=== PATIENT | male | born 1945 | race African-American/Black ===

== ENCOUNTER 2022-04-22 15:07 | Inpatient (IN) ==
[2022-04-22 17:12] VITALS: BMI 29.1
[2022-04-22] MEDS ORDERED: DILAUDID INJ IVP PRN (17:51)
[2022-04-22] MEDS ORDERED: NovoLIN R (or HumuLIN R) SC PRN (17:51)
[2022-04-22] MEDS: LR 1,000 ML IV 1,000 ML IV SCH (18:06)
[2022-04-22 18:28] LABS: BASOPHILS # (AUTO) 0.2 X10^3/uL (0.0-0.1); BASOPHILS % (AUTO) 2.4 % (0.2-1.0); EOSINOPHILS # (AUTO) 0.5 x10^3/uL (0.0-0.2); EOSINOPHILS % (AUTO) 6.9 % (0.9-2.9); HEMATOCRIT 36.1 % (42.0-54.0); HEMOGLOBIN 11.8 g/dL (13.5-18.0); LYMPHOCYTES # (AUTO) 2.3 X10^3/uL (1.3-2.9); MEAN CORPUSCULAR HEMOGLOBIN 29.6 pg (27.0-34.0); MEAN CORPUSCULAR HGB CONC 32.7 g/dL (33.0-35.0); MEAN CORPUSCULAR VOLUME 90.8 fL (80.0-100.0); MEAN PLATELET VOLUME 8.2 fL (7.4-11.0); MONOCYTES # (AUTO) 0.6 x10^3/uL (0.3-0.8); MONOCYTES % (AUTO) 9.3 % (0.0-13.0); NEUTROPHILS # (AUTO) 3.4 x10^3/uL (2.2-4.8); NEUTROPHILS % (AUTO) 48.4 % (42.0-75.0); RED BLOOD COUNT 3.97 X10^6/uL (4.7-6.0); WHITE BLOOD COUNT 6.9 X10^3/uL (3.6-10.0)
[2022-04-22 18:30] LABS: BLOOD UREA NITROGEN 12 mg/dL (7-18); CALCIUM 8.9 mg/dL (8.5-10.1); CARBON DIOXIDE 32.3 mmol/L (21-32); CHLORIDE 102 mmol/L (98-107); CREATININE 0.93 mg/dL (0.70-1.30); SODIUM 140 mmol/L (136-145); eGFR NON BLACK RACES > 60 (>60)
--- NOTE | 2022-04-22 19:55 | RAD ---
CHEST, 1 VIEWHISTORY: Ischemix lower extremitiesStudy: Single view of the chest.Comparison:NoneFindings:The cardiomediastinal silhouette is normal.No focal consolidations, pleural effusions or pneumothorax. Osseous structures demonstrate no acute abnormality.IMPRESSION:1. No acute cardiopulmonary process.Electronically signed by: RITCHIE SINCLAIR (Apr 22, 2022 19:54:10)
--- NOTE | 2022-04-22 20:00 | CT ---
HISTORYIschemic right lower extremitiesSTUDYCTA AORTA WITH RUNOFFCOMPARISONNone available.TECHNIQUEAxial CT images of the abdomen, pelvis and lower extremities were obtained prior to and after the administration of 150 Omnipaque 350 IV contrast during the arterial phase. Images were reformatted with a 3D angiographic technique for further evaluation.Radiation dose: 1097.82 mGy-cm total DLPFINDINGSAorta: Atherosclerotic changes with no aneurysm. No clinically significant stenosis or occlusion.Mesenteric arteries/Celiac trunk: Atherosclerotic changes. No clinically significant stenosis, occlusion or aneurysm.Renal arteries: Atherosclerotic changes. No clinically significant stenosis, occlusion or aneurysm.Right iliac arteries: Atherosclerotic changes. No clinically significant stenosis, occlusion or aneurysm.Left iliac arteries: Atherosclerotic changes. No clinically significant stenosis, occlusion or aneurysm.Right femoral arteries/popliteal artery: Atherosclerotic changes. No clinically significant stenosis, occlusion or aneurysm.Left femoral arteries/popliteal artery: Atherosclerotic changes. No clinically significant stenosis, occlusion or aneurysm.Right infrapopliteal arteries: Moderate atherosclerotic changes. Contrast is visualized throughout the peroneal artery, however contrast is only visualize in the proximal-mid aspect of the anterior and posterior tibial arteries.Left infrapopliteal arteries: Moderate atherosclerotic changes. Contrast is visualized throughout the peroneal artery, however contrast is only visualize in the proximal-mid aspect of the anterior and posterior tibial arteries.Lung bases are clear.Calcified subcarinal and hilar lymph nodes; consistent with the sequela of a previous granulomatous infection.Stomach and proximal small bowel appear normal.Solid visceral organs of the upper abdomen are unremarkable.Tiny calcified gallstones or sludge in the dependent portion of the gallbladder with no imaging findings of acute cholecystitis.No biliary dilatation.Bilateral renal cysts.Otherwise, unremarkable appearance of the kidneys and ureters.No urinary calculus identified.Urinary bladder is unremarkable.Colonic diverticulosis without diverticulitis.Otherwise, unremarkable appearance of the small and large bowel.No evidence of acute appendicitis.Nonspecific enlargement of the prostate gland.No pneumoperitoneum.No free intra-abdominal fluid.No adenopathy.Small fat containing umbilical hernia without inflammatory changes.Cutaneous ulcer in the anterior aspect of the distal right leg with chronic appearing lucency in the adjacent tibia.IMPRESSION1. No acute intra-abdominal abnormality identified.2. Moderate atherosclerotic changes in the trifurcation vessels in the distal lower extremity bilaterally. Contrast is visualized throughout the peroneal artery, however contrast is only visualize in the proximal-mid aspect of the anterior and posterior tibial arteries bilateral.3. Cutaneous ulcer in the anterior aspect of the distal right leg with chronic appearing lucency in the adjacent tibia. Finding is concerning for cellulitis/chronic osteomyelitis.4. Tiny calcified gallstones or sludge in the dependent portion of the gallbladder with no imaging findings of acute cholecystitis.5. Colonic diverticulosis without diverticulitis.6. Nonspecific enlargement of the prostate gland.Electronically signed by: Uri Payne (Apr 22, 2022 20:00:04)
[2022-04-22] MEDS: RESTORIL CAP 15 MG PO PRN (23:53)
[2022-04-22] MEDS ORDERED: RESTORIL CAP 15 MG PO ONE (23:57)
[2022-04-23] MEDS: LR 1,000 ML IV 1,000 ML IV SCH ×2 (09:18→22:14)
[2022-04-23] MEDS: ZESTRIL TAB 10 MG PO SCH (09:18)
[2022-04-23] MEDS ORDERED: NS 1,000 ML IV 1,000 ML ONE (12:19)
[2022-04-23] MEDS ORDERED: NS 100 ML IV 100 ML ONE (12:23)
[2022-04-23] MEDS ORDERED: ANCEF VIAL 1 GRAM ONE (12:24)
[2022-04-23] MEDS ORDERED: HEPARIN SODIUM IN D5W 75,000 UNITS/1,500 ML BAG ONE (13:04)
[2022-04-23] MEDS ORDERED: MARCAINE 0.5% ONE (13:04)
[2022-04-23] MEDS ORDERED: XYLOCAINE 2 % (PLAIN) ONE (14:04)
[2022-04-23] MEDS ORDERED: DIPRIVAN VIAL 40 ML ONE (14:04)
[2022-04-23] MEDS ORDERED: KETAMINE 50 MG/5 ML-NACL SYRNG ONE (14:04)
[2022-04-23] MEDS ORDERED: MAGNESIUM SULFATE 50% INJ VIAL ONE (14:05)
[2022-04-23] MEDS ORDERED: PRECEDEX INJ VIAL IVP ONE (14:05)
[2022-04-23] MEDS ORDERED: FENTANYL VIAL INJ 100 mcg ONE (14:17)
[2022-04-23] MEDS ORDERED: HEPARIN SODIUM INJ 5000 UNITS ONE ×2 (14:20→15:28)
[2022-04-23] MEDS ORDERED: ROBINUL ONE (14:22)
[2022-04-23] MEDS ORDERED: NEO-SYNEPHRINE INJ ONE (14:24)
[2022-04-23] MEDS ORDERED: NS 500 ML IV 500 ML IV ONE (15:21)
[2022-04-23] MEDS ORDERED: DIPRIVAN VIAL 20 ML ONE (15:30)
[2022-04-23] MEDS ORDERED: FLUZONE II4 or AFLURIA II4 IM ONE (16:00)
[2022-04-23] MEDS ORDERED: PROTAMINE SULFATE 50 MG VIAL ONE (16:02)
[2022-04-23] MEDS ORDERED: PERCOCET TAB 5/325 MG PO PRN (16:16)
--- NOTE | 2022-04-23 17:00 | OR.IMMED ---
IMMEDIATE POST-OP NOTE Immediate Post-Op Note Pre-Op Diagnosis: Critically ischemic right foot with non healing wound Post-Op Diagnosis: same Procedure: Diagnostic aortogram, arteriogram right leg, atherectomy and balloon angioplasty left posterior tibial artery, angioplasty rigth anterior tibial artery, angioplasty right peroneal artery. Description of Procedure: see operative summary Surgeon/Insulation Worker: Yancy Findings: complete occlusion right anterior tibial and posterior tibial arteries, Severe stenosis right peroneal artery Estimated Blood Loss: 75 cc Drains: NONE Complications: none Progress Notes: return to floor, continue hydration, 1800 calorie diet, check labs in AM and if ready will discharge home then Final Diagnosis: as above
[2022-04-23] MEDS ORDERED: TYLENOL 325 MG TAB PO PRN (22:50)
[2022-04-23] MEDS ORDERED: TYLENOL 325 MG TAB PO ONE (22:52)
[2022-04-23] MEDS: RESTORIL CAP 15 MG PO PRN (22:57)
[2022-04-24] MEDS ORDERED: STERILE WATER IRRIGATION IR ONE ×2 (03:31→03:33)
[2022-04-24 04:20] LABS: BILIRUBIN,URINE NEGATIVE (NEGATIVE); BLOOD/HEMOGLOBIN,URINE 5+ (NEGATIVE); GLUCOSE, URINE 1+ (NEGATIVE); KETONES,URINE NEGATIVE (NEGATIVE); LEUKOCYTE ESTERASE ,URINE 1+ (NEGATIVE); NITRITES,URINE NEGATIVE (NEGATIVE); PH,URINE 6.5 (5.0 - 8.0); PROTEIN,URINE 4+ (NEGATIVE); UROBILINOGEN,URINE NORMAL (NORMAL)
[2022-04-24 04:28] LABS: COLOR,URINE RED (YELLOW)
[2022-04-24 04:30] LABS: APPEARANCE,URINE TURBID (CLEAR)
[2022-04-24 04:33] LABS: RBC,URINE TNTC /HPF (0-3); SQUAMOUS EPITHELIAL CELL,UR RARE /HPF (NEGATIVE)
[2022-04-24 04:34] LABS: BACTERIA,URINE TRACE /HPF (NEGATIVE)
[2022-04-24] MEDS: LR 1,000 ML IV 1,000 ML IV SCH ×2 (04:37→10:57)
[2022-04-24 05:47] LABS: BASOPHILS % (AUTO) 0.3 % (0.2-1.0); EOSINOPHILS # (AUTO) 0.2 x10^3/uL (0.0-0.2); EOSINOPHILS % (AUTO) 2.5 % (0.9-2.9); HEMATOCRIT 34.6 % (42.0-54.0); HEMOGLOBIN 11.6 g/dL (13.5-18.0); LYMPHOCYTES # (AUTO) 1.4 X10^3/uL (1.3-2.9); LYMPHOCYTES % (AUTO) 16.7 % (21.0-51.0); MEAN CORPUSCULAR HEMOGLOBIN 30.2 pg (27.0-34.0); MEAN CORPUSCULAR HGB CONC 33.4 g/dL (33.0-35.0); MEAN CORPUSCULAR VOLUME 90.5 fL (80.0-100.0); MEAN PLATELET VOLUME 8.1 fL (7.4-11.0); MONOCYTES # (AUTO) 0.7 x10^3/uL (0.3-0.8); MONOCYTES % (AUTO) 8.7 % (0.0-13.0); NEUTROPHILS # (AUTO) 5.9 x10^3/uL (2.2-4.8); NEUTROPHILS % (AUTO) 71.8 % (42.0-75.0); RED BLOOD COUNT 3.83 X10^6/uL (4.7-6.0); RED CELL DISTRIBUTION WIDTH 13.1 % (11.6-16.5); WHITE BLOOD COUNT 8.3 X10^3/uL (3.6-10.0)
[2022-04-24 05:57] LABS: BLOOD UREA NITROGEN 13 mg/dL (7-18); CALCIUM 8.4 mg/dL (8.5-10.1); CHLORIDE 102 mmol/L (98-107); COR NA(FOR HYPERGLY) 139 mmol/L (136-145); CREATININE 1.04 mg/dL (0.70-1.30); SODIUM 138 mmol/L (136-145); eGFR NON BLACK RACES > 60 (>60)
[2022-04-24] MEDS ORDERED: FLUZONE II4 or AFLURIA II4 IM ONE (08:00)
[2022-04-24] MEDS: ZESTRIL TAB 10 MG PO SCH (08:19)
[2022-04-24 08:27] LABS: ALANINE AMINOTRANSFERASE 19 Units/L (12-78); ALKALINE PHOSPHATASE 77 Units/L (46-116); ASPARTATE AMINO TRANSFERASE 23 Units/L (15-37); BLOOD UREA NITROGEN 14 mg/dL (7-18); CALCIUM 8.4 mg/dL (8.5-10.1); CARBON DIOXIDE 30.5 mmol/L (21-32); CHLORIDE 101 mmol/L (98-107); COR CA(FOR HYPOALB) 9.2 mg/dL (8.5-10.1); COR NA(FOR HYPERGLY) 139 mmol/L (136-145); SODIUM 138 mmol/L (136-145); TOTAL PROTEIN 6.9 g/dL (6.4-8.2); eGFR NON BLACK RACES > 60 (>60)
--- NOTE | 2022-04-24 11:35 | W.DIS.FURT ---
Summary of Discharge Discharge Summary of Date Date of Exam: 04/24/22 Admission Date Date of Admission: 04/22/22 Admission Diagnosis Hospital Course: 76 year old mail referred to my office on April 22, 2022. Patient with history in the past of fracture of the right ankle requiring open reduction and internal fixation with one single screw in place. Patient with draining wound at the anterior right ankle . Patient is to have removal of the foreign body in the near future with debridement of the ankle wound .Arterial Doppler showed only monophasic flow below the knee of the right leg. Concern was that this would not heal due to the arterial flow problem. He was admitted that day and CT angiogram showed complete occlusion of all trifurcation vessels below the knee. He was taken to the operating Suite the next day April 23 ,where he had an aortogram and arteriogram of the right lower extremity. He had complete total occlusion of both the anterior tibial and posterior tibial arteries with severe stenosis of the proximal right peroneal artery which was the only thing that provided flow to the right foot and ankle .He underwent balloon angioplasty of the right anterior tibial artery which ended at the ankle near the fracture and did not reconstruct the dorsalis pedis. He underwent atherectomy and balloon angioplasty of the entire right posterior tibial artery all the way around the ankle of the medial malleolus as well as angioplasty of the right proximal severly diseased peroneal . Postoperatively he has done well. He had a Gomez catheter placed during the case and last night had some difficulty passing urine with evidence of clots . The Gomez catheter was replaced and irrigation of the bladder done and it is much clearer now. He will be on his usual medications plus aspirin 81 mg daily as well as Xarelto to a 2.5 mg BID. Follow up with me 1 week . I have contacted and told him it was okay to go ahead with the planned surgery of the right ankle to remove the screw and debride the wound as necessary . Gomez catheter to be removed prior to discharge. I have given him my cell phone number should he have any difficulty urinating. Encourage ambulation . Vital Signs: Vital Signs (72 hours) 04/22/22 16:42 04/22/22 16:22 04/22/22 19:00 Temperature 98.2 F Pulse Rate Pulse Rate [Right Radial] 69 Respiratory Rate 18 Blood Pressure Blood Pressure [Right Arm] 168/90 O2 Sat by Pulse Oximetry 97 Oxygen Delivery Method Room Air Room Air Room Air 04/22/22 20:00 04/22/22 23:29 04/23/22 04:00 Temperature 98 F 97.8 F 98.3 F Pulse Rate Pulse Rate [Right Radial] 80 85 71 Respiratory Rate 18 18 20 Blood Pressure Blood Pressure [Right Arm] 175/83 161/72 162/82 O2 Sat by Pulse Oximetry 94 L 95 94 L Oxygen Delivery Method Room Air Room Air Room Air 04/23/22 07:36 04/23/22 07:55 04/23/22 09:15 Temperature 97.3 F L Pulse Rate Pulse Rate [Right Radial] 71 Respiratory Rate 18 Blood Pressure Blood Pressure [Right Arm] 181/96 158/92 O2 Sat by Pulse Oximetry 94 L Oxygen Delivery Method Room Air Room Air 04/23/22 11:58 04/23/22 12:24 04/23/22 16:20 Temperature 98.2 F 97.7 F Pulse Rate 74 Pulse Rate [Right Radial] 70 58 L Respiratory Rate 18 20 16 Blood Pressure 169/86 Blood Pressure [Right Arm] 177/86 84/54 O2 Sat by Pulse Oximetry 97 96 98 Oxygen Delivery Method Room Air Room Air 04/23/22 16:35 04/23/22 16:50 04/23/22 17:05 Temperature 97.7 F 97.0 F L 97.0 F L Pulse Rate Pulse Rate [Right Radial] 55 L 52 L 64 Respiratory Rate 16 16 16 Blood Pressure Blood Pressure [Right Arm] 88/53 90/52 100/61 O2 Sat by Pulse Oximetry 100 100 99 Oxygen Delivery Method 04/23/22 17:20 04/23/22 18:20 04/23/22 19:00 Temperature 97.1 F L 97.3 F L Pulse Rate Pulse Rate [Right Radial] 60 61 Respiratory Rate 16 16 Blood Pressure Blood Pressure [Right Arm] 99/61 115/71 O2 Sat by Pulse Oximetry 100 100 Oxygen Delivery Method Room Air 04/23/22 22:58 04/23/22 19:20 04/23/22 20:20 Temperature 98.1 F 97.7 F Pulse Rate Pulse Rate [Right Radial] 56 L 63 Respiratory Rate 20 18 18 Blood Pressure Blood Pressure [Right Arm] 154/79 167/79 O2 Sat by Pulse Oximetry 100 95 Oxygen Delivery Method Room Air Room Air 04/23/22 23:03 04/23/22 23:46 04/23/22 23:58 Temperature 98 F 98.1 F Pulse Rate Pulse Rate [Right Radial] 80 84 Respiratory Rate 18 20 20 Blood Pressure Blood Pressure [Right Arm] 159/73 155/71 O2 Sat by Pulse Oximetry 95 94 L Oxygen Delivery Method Room Air Room Air 04/24/22 04:00 04/24/22 03:31 04/24/22 04:01 Temperature 97.8 F Pulse Rate Pulse Rate [Right Radial] 79 Respiratory Rate 18 20 20 Blood Pressure Blood Pressure [Right Arm] 179/84 O2 Sat by Pulse Oximetry 94 L Oxygen Delivery Method Room Air 04/24/22 08:31 Temperature Pulse Rate Pulse Rate [Right Radial] Respiratory Rate Blood Pressure Blood Pressure [Right Arm] O2 Sat by Pulse Oximetry Oxygen Delivery Method Room Air Labs: Laboratory Last Values WBC 8.3 X10^3/uL (3.6-10.0) 04/24/22 05:32 RBC 3.83 X10^6/uL (4.7-6.0) L 04/24/22 05:32 Hgb 11.6 g/dL (13.5-18.0) L 04/24/22 05:32 Hct 34.6 % (42.0-54.0) L 04/24/22 05:32 MCV 90.5 fL (80.0-100.0) 04/24/22 05:32 MCH 30.2 pg (27.0-34.0) 04/24/22 05:32 MCHC 33.4 g/dL (33.0-35.0) 04/24/22 05:32 RDW 13.1 % (11.6-16.5) 04/24/22 05:32 Plt Count 214 X10^3/uL (150.0-450.0) 04/24/22 05:32 MPV 8.1 fL (7.4-11.0) 04/24/22 05:32 Neut % (Auto) 71.8 % (42.0-75.0) 04/24/22 05:32 Lymph % (Auto) 16.7 % (21.0-51.0) L 04/24/22 05:32 [place] % (Auto) 8.7 % (0.0-13.0) 04/24/22 05:32 Eos % (Auto) 2.5 % (0.9-2.9) 04/24/22 05:32 Baso % (Auto) 0.3 % (0.2-1.0) 04/24/22 05:32 Neut # (Auto) 5.9 x10^3/uL (2.2-4.8) H 04/24/22 05:32 Lymph # (Auto) 1.4 X10^3/uL (1.3-2.9) 04/24/22 05:32 [place] # (Auto) 0.7 x10^3/uL (0.3-0.8) 04/24/22 05:32 Eos # (Auto) 0.2 x10^3/uL (0.0-0.2) 04/24/22 05:32 Baso # (Auto) 0.0 X10^3/uL (0.0-0.1) 04/24/22 05:32 Absolute Nucleated RBC 0.0 /100WBC 04/24/22 05:32 Sodium 138 mmol/L (136-145) 04/24/22 05:32 Sodium 138 mmol/L (136-145) 04/24/22 05:32 Corrected Sodium 139 mmol/L (136-145) 04/24/22 05:32 Corrected Sodium 139 mmol/L (136-145) 04/24/22 05:32 Potassium 4.0 mmol/L (3.5-5.1) 04/24/22 05:32 Potassium 4.0 mmol/L (3.5-5.1) 04/24/22 05:32 Chloride 101 mmol/L (98-107) 04/24/22 05:32 Chloride 102 mmol/L (98-107) 04/24/22 05:32 Carbon Dioxide 30.0 mmol/L (21-32) 04/24/22 05:32 Carbon Dioxide 30.5 mmol/L (21-32) 04/24/22 05:32 BUN 13 mg/dL (7-18) 04/24/22 05:32 BUN 14 mg/dL (7-18) 04/24/22 05:32 Creatinine 1.04 mg/dL (0.70-1.30) 04/24/22 05:32 Creatinine 1.10 mg/dL (0.70-1.30) 04/24/22 05:32 Est GFR (MDRD) Af Amer > 60 (>60) 04/24/22 05:32 Est GFR (MDRD) Af Amer > 60 (>60) 04/24/22 05:32 Est GFR (MDRD) Non-Af > 60 (>60) 04/24/22 05:32 Est GFR (MDRD) Non-Af > 60 (>60) 04/24/22 05:32 Glucose 130 mg/dL (65-99) H 04/24/22 05:32 Glucose 131 mg/dL (65-99) H 04/24/22 05:32 POC Glucose (mg/dL) 156 mg/dL (65-99) H 04/24/22 10:57 Calcium 8.4 mg/dL (8.5-10.1) L 04/24/22 05:32 Calcium 8.4 mg/dL (8.5-10.1) L 04/24/22 05:32 Corrected Calcium 9.2 mg/dL (8.5-10.1) 04/24/22 05:32 Total Bilirubin 0.60 mg/dL (0.2-1.0) 04/24/22 05:32 AST 23 Units/L (15-37) 04/24/22 05:32 ALT 19 Units/L (12-78) 04/24/22 05:32 Alkaline Phosphatase 77 Units/L (46-116) 04/24/22 05:32 Total Protein 6.9 g/dL (6.4-8.2) 04/24/22 05:32 Albumin 3.0 g/dL (3.4-5.0) L 04/24/22 05:32 Globulin 3.9 g/dL (2.5-4.5) 04/24/22 05:32 Albumin/Globulin Ratio 0.8 Ratio (1.1-2.1) L 04/24/22 05:32 Specimen Type Catherized urine 04/24/22 04:00 Urine Color Red (YELLOW) 04/24/22 04:00 Urine Appearance Turbid (CLEAR) 04/24/22 04:00 Urine pH 6.5 (5.0 - 8.0) 04/24/22 04:00 Ur Specific [place] 1.010 (1.000-1.030) 04/24/22 04:00 Urine Protein 4+ (NEGATIVE) 04/24/22 04:00 Urine Glucose (UA) 1+ (NEGATIVE) 04/24/22 04:00 Urine Ketones Negative (NEGATIVE) 04/24/22 04:00 Urine Blood 5+ (NEGATIVE) 04/24/22 04:00 Urine Nitrite Negative (NEGATIVE) 04/24/22 04:00 Urine Bilirubin Negative (NEGATIVE) 04/24/22 04:00 Urine Urobilinogen Normal (NORMAL) 04/24/22 04:00 Ur Leukocyte Esterase 1+ (NEGATIVE) 04/24/22 04:00 Urine RBC Tntc /HPF (0-3) A 04/24/22 04:00 Urine WBC 0-2 /HPF (0-5) 04/24/22 04:00 Ur Squamous Epith Cells Rare /HPF (NEGATIVE) 04/24/22 04:00 Urine Bacteria Trace /HPF (NEGATIVE) 04/24/22 04:00 Urine Mucus Rare /HPF (NEGATIVE) 04/24/22 04:00 Ur Culture Indicated? No/not indicated 04/24/22 04:00 Reason For Visit: ISCHEMIC RIGHT LEG Discharge Date Discharge Date: 04/24/22 Discharge Diagnosis All Active Problems (Updated 04/24/22 @ 11:34 by Dejan Haines) Critical limb ischemia of right lower extremity (Acute) Plan of Treatment: Continue with present treatment and follow up plan. Pt is to keep follow up appointment as instructed and take medications as ordered. Discharge Medications Discharge Medications: No Known Drug Allergies [NKDA] Allergy (Verified 04/22/22 17:17) CONTINUE taking the following medications metformin 1,000 mg tablet 1,000 mg PO BID 04/23/22 [History] New Prescriptions aspirin 81 mg tablet,delayed release 81 mg PO QDAY #90 tabs 04/24/22 [Rx] rivaroxaban 2.5 mg tablet (Xarelto) 2.5 mg PO BID #180 tabs 04/24/22 [Rx] Discharge Disposition Assessment: see hospital course Discharge Plan Discharge Plan Hospital Course: 76 year old mail referred to my office on April 22, 2022. Patient with history in the past of fracture of the right ankle requiring open reduction and internal fixation with one single screw in place. Patient with draining wound at the anterior right ankle . Patient is to have removal of the foreign body in the near future with debridement of the ankle wound .Arterial Doppler showed only monophasic flow below the knee of the right leg. Concern was that this would not heal due to the arterial flow problem. He was admitted that day and CT angiogram showed complete occlusion of all trifurcation vessels below the knee. He was taken to the operating Suite the next day April 23 ,where he had an aortogram and arteriogram of the right lower extremity. He had complete total occlusion of both the anterior tibial and posterior tibial arteries with severe stenosis of the proximal right peroneal artery which was the only thing that provided flow to the right foot and ankle .He underwent balloon angioplasty of the right anterior tibial artery which ended at the ankle near the fracture and did not reconstruct the dorsalis pedis. He underwent atherectomy and balloon angioplasty of the entire right posterior tibial artery all the way around the ankle of the medial malleolus as well as angioplasty of the right proximal severly diseased peroneal . Postoperatively he has done well. He had a Gomez catheter placed during the case and last night had some difficulty passing urine with evidence of clots . The Gomez catheter was replaced and irrigation of the bladder done and it is much clearer now. He will be on his usual medications plus aspirin 81 mg daily as well as Xarelto to a 2.5 mg BID. Follow up with me 1 week . I have contacted and told him it was okay to go ahead with the planned surgery of the right ankle to remove the screw and debride the wound as necessary . Gomez catheter to be removed prior to discharge. I have given him my cell phone number should he have any difficulty urinating. Encourage ambulation . Patient Disposition: 01 HOME, SELF-CARE Condition: Stable Health Concerns: Post Hospitalization: new medications and changes needed to prevent readmission or further decline. Pt educated and given instructions on all concerns. Care Plan Goals: See hospital summary Plan of Treatment: Continue with present treatment and follow up plan. Pt is to keep follow up appointment as instructed and take medications as ordered. Assessment: see hospital course Prescriptions: New aspirin 81 mg tablet,delayed release (DR/EC) 81 mg PO QDAY Qty: 90 0RF Xarelto 2.5 mg tablet 2.5 mg PO BID Qty: 180 0RF Continued metformin 1,000 mg tablet 1,000 mg PO BID Follow ups/Referrals Follow ups/Referrals: Dejan Haines [STAFF PHYSICIAN] - 1 WEEK Instructions Stand Alone Forms: Excuse From Work or School
[2022-04-24 12:10] VITALS: BP 178/92
--- NOTE | 2022-04-26 19:59 | DR.OPNOTE ---
OP NOTE Pre-Op Diagnosis: critical ischemia right foot, non healing wound right ankle Post-Op Diagnosis: same Procedure Date Date Of Procedure: 04/23/22 Procedure: PROCEDURE: DIAGNOSTIC AORTOGRAM, DIAGNOSTIC ARTERIOGRAM , RIGHT ANTERIOR TIBIAL ARTERY BALLOON ANGIOPLASTY, ATHERECTOMY AND BALLOON ANGIOPLASTY RIGHT POSTERIOR TIBIAL ARTERY, ANGIOPLASTY RIGHT PERONEAL ARTERY NARRATIVE :The patient was taken to the operative suite and placed in the supi ne position. The left groin and entire right leg were prepped and draped in sterile fashion. Patient was administered intravenous sedation which was supervised by myself. Time out for the procedure obtained . Ultrasound used to identify the left femoral artery and the skin overlying it infiltrated with 0.5% Marcaine . Ultrasound then used to guide puncture of the left femoral artery and a 0.012 inch guide wire placed. Incision made over the guide wire at the skin edge with a number 11 knife blade and a micro sheath placed over the guide wire into the left femoral artery . The small wire exchanged for a 0.035 inch Advantage glide wire and the micro sheath exchanged for a 5 Fr vascular sheath . Omni catheter placed over the guide wire into the aorta and diagnostic aortogram carried out with the power injector showing normal aorta and normally iliac arteries . Omni catheter used to steer the guide wire down the right iliac artery to the right common femoral artery and [place] catheter exchanged for an Omni catheter and sequential arteriograms carried out of the right leg showing normal superficial femoral artery, normal popliteal artery, normal tibial peroneal trunk with complete total occlusion of the right anterior tibial artery, complete total occlusion of the right posterior tibial artery and severe stenosis of the proximal right peroneal artery . Patient giv en 5000 units of Heparin. The 5 Fr sheath in the left groin exchanged for a 7 Fr destination sheath and it was parked in the mid superficial femoral artery. From here the [place] catheter and 0.018 wire used to traverse the entire occluded anterior tibial artery down to the ankle. This anterior tibial artery then balloon dilated with 2mmx 220 mm [employer] [place] balloon. Follow up arteriogram showed there was still some evidence of stenosis. Therefore, we balloon dilated the entire right anterior artery with a 3mm x 220 mm [place] balloon with repeat arteriogram showing excellent results however the anterior tibial artery ended at the ankle where the old fracture was. Over the 0.0 18- inch wire we placed a Jozef cross angled catheter used to enter the right posterior tibial artery and guide wire taken all the way down and around the medial malleolus . Atherectomy of the posterior tibial artery carried out with the Jet stream atherectomy device . Then over this guide wire we placed the 3mm x 220mm balloon and inflated it for 1 minute. Posterior tibial arteriogram showed excellent result. Then the wire was placed in the peroneal artery all the way to the ankle and then balloon dilated the proximal peroneal artery with the 3 mm x 2220 mm [employer] balloon inflating it for 1 minute. There was selective catherization of all three distal vessels as described above . Post procedure arteriogram showed excellent flow through all three trifurcation vessels to the ankle and right foot. Wires and devices removed and the destination sheath pulled back into the aorta and a 0.035 inch guide wire placed . The destination sheath exchanged for the Angioseal device which was used to close the puncture of the left femoral artery. Dressing applied to the left groin and patient taken to [facility] in good condition. Type of Anesthesia: Local (0.5% Marcaine) Anesthesia Comment: plus MAC Findings: complete total occlusion right anterior tibial artery and right posterior tibial artery, severe stenosis of prximal right peroneal artery. Type of Fluids Used:: Lactated Ringers Total Amount of Fluid Infused:: 600 cc EBL: 75 cc Complications:: none Needle/Sponge Count:: correct Disposition/Condition: Pt. tolerated procedure without difficulty. Taken to [facility] in stable condition.
--- NOTE | 2022-04-26 20:58 | DR.UPDATE ---
H&P UPDATE Review Yes Any changes to H&P?: No
== END 2022-04-24 13:35 | disposition home or self-care (01) | DRG 272 ==
LOC: MED/SURG 16:09
PROVIDERS: ADMIT Surgery; ATTEND Surgery
DX: S91.001A Unspecified open wound, right ankle, initial encounter; I70.221 Atherosclerosis of native arteries of extremities with rest pain, right leg; X58.XXXA Exposure to other specified factors, initial encounter; I10 Essential (primary) hypertension